=== PATIENT | female | born 1985 | race Asian ===

== ENCOUNTER → 2021-08-19 | Outpatient (CLI) | payer OTHER ==
[2021-08-19 17:27] LABS: BILIRUBIN,URINE NEGATIVE (NEGATIVE); GLUCOSE, URINE (UA) NEGATIVE (NEGATIVE); KETONES,URINE (UA) NEGATIVE (NEGATIVE); LEUKOCYTE ESTERASE, URINE SMALL (NEGATIVE); NITRITE,URINE NEGATIVE (NEGATIVE); OCCULT BLOOD,URINE LARGE (NEGATIVE); PH,URINE 5.5 PH (5.0-7.5); PROTEIN,URINE NEGATIVE (NEGATIVE); UROBILINOGEN,URINE 0.2 (NORMAL) E.U./dL (NORMAL)
[2021-08-19 17:28] LABS: CLARITY,URINE CLOUDY (CLEAR)
[2021-08-19 17:36] LABS: AMORPHOUS SEDIMENT,UR Marked /LPF; BACTERIA,URINE Few /HPF (None Seen); SQUAMOUS EPITHELIAL CELL,UR MANY Squamous (<= Few); WBC,URINE 0-3 /HPF (0-5)
== END ==
LOC: LAB 08:00
PROVIDERS: ATTEND Obstetrics & Gynecology
DX: Z32.01 Encounter for pregnancy test, result positive (principal)
CPT/HCPCS: 81001; 87086

== ENCOUNTER 2021-08-27 16:45 | Outpatient (CLI) | payer OTHER ==
[2021-08-27 19:53] LABS: BASOPHILS % (AUTO) 0.3 %; EOSINOPHILS # (AUTO) 0.2 10^3/uL (0.0-0.7); HCT - HEMATOCRIT 37.4 % (37.0-47.0); HGB - HEMOGLOBIN 12.7 g/dL (12.0-16.0); LYMPHOCYTES # (AUTO) 2.4 10^3/uL (1.5-3.5); LYMPHOCYTES % (AUTO) 30.1 %; MEAN CORPUSCULAR HEMOGLOBIN 32.2 pg (27.0-31.0); MEAN CORPUSCULAR VOLUME 94.7 fL (81.0-99.0); MEAN PLATELET VOLUME 10.7 fL (7.9-10.8); MONOCYTES # (AUTO) 0.5 10^3/uL (0.0-1.0); MONOCYTES % (AUTO) 6.6 %; NEUTROPHILS # (AUTO) 4.8 10^3/uL (1.5-6.6); NEUTROPHILS % (AUTO) 60.7 %; PLT - PLATELET COUNT 231 10^3/uL (130-450); RED BLOOD COUNT 3.95 10^6/uL (4.20-5.40); RED CELL DISTRIBUTION WIDTH 11.5 % (12.0-15.0); WHITE BLOOD COUNT 7.9 x10^3/uL (4.8-10.8)
== END 2021-08-27 16:46 | disposition home or self-care (01) ==
LOC: LAB.S 16:45
PROVIDERS: ATTEND Obstetrics & Gynecology
DX: Z36.89 Encounter for other specified antenatal screening (principal)
CPT/HCPCS: 36415; 85025; 86592; 86762; 86787; 86803; 86850; 86900; 86901; 87340; 87389

== ENCOUNTER 2021-08-29 17:50 | Outpatient (CLI) | payer OTHER ==
--- NOTE | 2021-08-29 18:51 | Ultrasound Report ---
PROCEDURE: OB First Trimester INDICATIONS: +PREG TEST OUTSIDE/PRIOR DATING DATA: Last menstrual period (LMP): 06/24/2021. LMP-based estimated date of delivery (ZIGGY): 03/31/2022. First dating scan (date and location): 08/29/2021. Estimated date of delivery (ZIGGY) from first dating scan: 04/04/2022. The below data below was generated using the study generated ZIGGY of 04/04/2022 TECHNIQUE: Real-time scanning was performed of the fetus and maternal pelvic organs, with image documentation. COMPARISON: None FINDINGS: Embryo: Single intrauterine gestational sac is seen with fetus and yolk sac seen. heart rate i s 171 bpm. [place]-rump length measures 2.2 cm. Estimated gestational age based on current study is 8 w eeks, 6 days. No prior gestational hemorrhage is seen. Measurement variability in dating: +/- 4 weeks by LMP, +/- 7 days by mean sac diameter (use before 6 weeks gestation if crown-rump length not able to be measured), +/- 5 days by crown-rump length (6-12 weeks gestation). Maternal organs: Left ovary is within normal limits. 2.1 x 2.1 x 1.9 cm corpus luteal cyst is seen in right ovary. IMPRESSION: 1. Single live intrauterine with fetus and yolk sac seen. heart rate is 171 bpm. Mary mated gestational age is 8 weeks, 6 days. 2. Corpus luteal cyst in right ovary as above. Reviewed by: Joseph Diane MD on 08/29/2021 6:49 PM PDT Approved by: Jospeh Diane MD on 08/29/2021 6:49 PM PDT Station ID: [id number]
== END 2021-08-29 17:51 | disposition home or self-care (01) ==
LOC: DI 17:50
PROVIDERS: ATTEND Obstetrics & Gynecology
DX: Z32.01 Encounter for pregnancy test, result positive (principal)

== ENCOUNTER 2021-09-03 17:38 | Outpatient (CLI) | payer OTHER ==
[2021-09-03 20:39] LABS: CHLAMYDIA TRACHOMATIS DNA NEGATIVE (NEGATIVE); NEISSERIA GONORRHOEAE DNA NEGATIVE (NEGATIVE); TRICHOMONAS VAGINALIS DNA NEGATIVE (NEGATIVE)
== END 2021-09-03 23:59 | disposition home or self-care (01) ==
LOC: LAB.WC 17:38
PROVIDERS: ATTEND Nurse Practitioner Obstetrics & Gynecology
DX: Z11.3 Encounter for screening for infections with a predominantly sexual mode of transmission (principal)
CPT/HCPCS: 87491; 87591; 87661

== ENCOUNTER 2021-09-28 09:15 | Outpatient (CLI) | payer SELFPAY | END 2021-09-28 09:16 | disposition home or self-care (01) | LOC: LAB 09:15 | PROVIDERS: ATTEND Nurse Practitioner Obstetrics & Gynecology | DX: Z34.90 Encounter for supervision of normal pregnancy, unspecified, unspecified trimester (principal) | CPT/HCPCS: 36415 ==

== ENCOUNTER 2021-10-08 11:07 | Outpatient (CLI) | payer OTHER | END 2021-10-08 11:08 | disposition home or self-care (01) | LOC: LAB 11:07 | PROVIDERS: ATTEND Obstetrics & Gynecology | DX: Z34.90 Encounter for supervision of normal pregnancy, unspecified, unspecified trimester (principal) | CPT/HCPCS: 36415; 81599; 82105; 82306 ==

== ENCOUNTER 2021-11-14 08:44 | Outpatient (CLI) | payer OTHER ==
--- NOTE | 2021-11-14 10:39 | Ultrasound Report ---
PROCEDURE: OB Detailed Eval INDICATIONS: SUPERVISION OF OUTSIDE/PRIOR DATING DATA: Last menstrual period (LMP): 06/24/2021. LMP-based estimated date of delivery (ZIGGY): 03/31/2022. First dating scan (date and location): 08/29/2020. Estimated date of delivery (ZIGGY) from first dating scan: 04/04/2022. The below data below was generated using the ultrasound dating ZIGGY of 04/04/2022 TECHNIQUE: Real-time scanning was performed of the fetus, with image documentation and biometric measurements. Endovaginal scanning: Not performed COMPARISON: Limited comparison with prior ultrasound dated 08/29/2022 FINDINGS: Right corpus luteal cyst measuring 1.5 cm in greatest diameter. No suspicious adnexal mass. General: A single living intrauterine gestation is present. Presentation: Transverse maternal right Placenta: Placental position is anterior, without previa. Amniotic fluid index: 11.1 cm heart rate: 144 beats per minute. Maternal cervical canal: 4.0 cm long; normal length is 2.5 cm or more. biometrics: Biparietal diameter: 4.7 cm corresponding to 20 weeks 1 day Head circumference: 17.1 cm corresponding to 19 weeks 5 days Abdominal circumference: 15.2 cm corresponding to 20 weeks 3 days Femur length: 2.9 cm corresponding to 19 weeks 0 days Estimated gestational age from initial scan: not applicable. Composite gestational age from present scan: 19 weeks 5 days Estimated weight and percentile: 314 g, 43% Measurement variability in biometric dating: +/- 10 days from 12-20 weeks gestation, +/- 2 weeks from 20-30 weeks gestation, +/- 3 weeks at 30 weeks gestation or later. Anatomic survey: Neuro: Ventricles are normal at less than 10 mm. Cisterna magna is normal at 3-11 mm. Cerebellum i s normal in size and morphology. Nuchal skin fold: Normal at less than 6 mm between 14 and 20 weeks gestational age. Face: Nose and lips, facial profile are normal. Spine: No evidence for spina bifida. Heart: 4-chambered heart is present. Right ventricular outflow tract is not well seen. Diaphragm: Diaphragm is intact. Stomach: Left-sided stomach is present. Kidneys: No hydronephrosis. Normal is less than 5 mm in 2nd trimester, less than 7 mm in 3rd trimester. Cord: 3 vessel cord has orthotopic insertion. Bladder: Normal in size. Extremities: All 4 extremities are visualized. IMPRESSION: Single living intrauterine with heart rate of 144 bpm. Gestational age corresponding to 19 weeks 5 days with weight at 314 g corresponding to the 43rd percentile. Right ventricular outflow tract was not well appreciated on today's exam. Consider repeat for further evaluation, otherwise no anatomic abnormality identified. Reviewed by: Macho Smith DO on 11/14/2021 9:38 AM [facility] Approved by: Macho Smith DO on 11/14/2021 9:38 AM [facility] Station ID: [id number]
== END 2021-11-14 08:45 | disposition home or self-care (01) ==
LOC: DI 08:44
PROVIDERS: ATTEND Obstetrics & Gynecology
DX: Z34.00 Encounter for supervision of normal first pregnancy, unspecified trimester (principal); Z36.89 Encounter for other specified antenatal screening

== ENCOUNTER 2021-11-26 17:03 | Outpatient (CLI) | payer OTHER ==
--- NOTE | 2021-11-27 09:57 | Ultrasound Report ---
PROCEDURE: OB F/U or Repeat INDICATIONS: SUPERVISION NORMAL completion of anatomy survey. OUTSIDE/PRIOR DATING DATA: Last menstrual period (LMP): 06/24/2021. LMP-based estimated date of delivery (ZIGGY): 03/31/2022. First dating scan (date and location): 08/29/2021. Estimated date of delivery (ZIGGY) from first dating scan: 04/04/2022. The below data below was generated using the first trimester ultrasound ZIGGY of 04/04/2022 TECHNIQUE: Real-time scanning was performed of the fetus, with image documentation and biometric measurements. Endovaginal scanning: Not performed COMPARISON: 11/14/2021 FINDINGS: General: A single living intrauterine gestation is present. Presentation: Breech Placenta: Placental position is anterior, without previa. Amniotic fluid index: 13.5 cm, largest pocket is 4.5 cm heart rate: 145 beats per minute. Maternal cervical canal: Closed and 5.1 cm cm long; normal length is 2.5 cm or more. Other: cardiac outflow tracts were well seen and appear normal. IMPRESSION: 1. Completion of the anatomic survey by visualization of normal cardiac outflow tracts. Reviewed by: Ceci Mccall MD on 11/27/2021 9:56 AM PST Approved by: Ceci Mccall MD on 11/27/2021 9:56 AM PST Station ID: [id number]
== END 2021-11-26 17:04 | disposition home or self-care (01) ==
LOC: DI 17:03
PROVIDERS: ATTEND Obstetrics & Gynecology
DX: Z34.00 Encounter for supervision of normal first pregnancy, unspecified trimester (principal)

== ENCOUNTER 2021-12-28 07:08 | Outpatient (CLI) | payer OTHER ==
[2021-12-28 14:22] LABS: HCT - HEMATOCRIT 30.9 % (37.0-47.0); HGB - HEMOGLOBIN 10.4 g/dL (12.0-16.0); MEAN CORPUSCULAR HEMOGLOBIN 33.4 pg (27.0-31.0); MEAN CORPUSCULAR HGB CONC 33.7 g/dL (32.0-36.0); MEAN CORPUSCULAR VOLUME 99.4 fL (81.0-99.0); MEAN PLATELET VOLUME 11.4 fL (7.9-10.8); RED BLOOD COUNT 3.11 10^6/uL (4.20-5.40); RED CELL DISTRIBUTION WIDTH 13.4 % (12.0-15.0)
== END 2021-12-28 07:09 | disposition home or self-care (01) ==
LOC: LAB.S 07:08
PROVIDERS: ATTEND Obstetrics & Gynecology
DX: Z34.90 Encounter for supervision of normal pregnancy, unspecified, unspecified trimester (principal)
CPT/HCPCS: 36415; 82728; 82950; 85027

== ENCOUNTER 2022-01-06 08:01 | Outpatient (CLI) | payer OTHER ==
[2022-01-06 08:34] LABS: GTT GLUCOSE,FASTING 90 mg/dL (70-100)
== END 2022-01-06 08:02 | disposition home or self-care (01) ==
LOC: LAB 08:01
PROVIDERS: ATTEND Obstetrics & Gynecology
DX: O99.810 Abnormal glucose complicating pregnancy (principal)
CPT/HCPCS: 36415; 82951; 82952

== ENCOUNTER 2022-02-22 10:26 | Outpatient (CLI) | payer OTHER ==
[2022-02-22 12:02] VITALS: BP 119/71
--- NOTE | 2022-02-24 00:16 | PROCEDURE REPORT ---
- HPI Diagnosis/Indication for NST: Gestational Diabetes Current EDU 03/31/22 Gestation 34 Weeks and 5 Days 1 Para 0 Vital Signs Temperature 98.1 F 02/22/22 10:56 Heart Rate 67 02/22/22 10:56 Respiratory Rate 20 02/22/22 10:56 Blood Pressure 119/71 02/22/22 10:56 Temperature 98.1 F 02/22/22 10:56 Heart Rate 67 02/22/22 10:56 Respiratory Rate 20 02/22/22 10:56 Blood Pressure 119/71 02/22/22 10:56 O2 Saturation - NST Procedure NST Procedure Start Date 02/22/22 Start Time 11:08 Stop Time 11:33 Vibroacoustic Stimulation Used No Patient States Movement Yes EFM 145 mod yoel 15x15 accels no decels TOCO: intermittent and mild - Results and Plan Findings/Impression: Patient is a 37 yo at 34+5 wga here for NST for A2DM -Cat I tracing -Cont with twice weekly NST and weekly TASH DOS: 02/22/22 NST read 02/22/22 DX: IUP at 34+5 wga Gestational diabetes
== END 2022-02-22 11:45 | disposition home or self-care (01) ==
LOC: WFO 10:26 → FBP 10:28 → WFO 11:45
PROVIDERS: ATTEND Obstetrics & Gynecology
DX: O24.419 Gestational diabetes mellitus in pregnancy, unspecified control (principal); Z3A.34 34 weeks gestation of pregnancy
CPT/HCPCS: 59025

== ENCOUNTER 2022-02-24 09:57 | Outpatient (CLI) | payer OTHER ==
--- NOTE | 2022-02-24 12:09 | Ultrasound Report ---
PROCEDURE: OB Limited INDICATIONS: GESTATIONAL DIABETES OUTSIDE/PRIOR DATING DATA: Last menstrual period (LMP): 06/24/2021. LMP-based estimated date of delivery (ZIGGY): 03/31/2022. First dating scan (date and location): 08/29/2022. Estimated date of delivery (ZIGGY) from first dating scan: 04/04/2022. The below data below was generated using the first trimester ultrasound ZIGGY of 04/04/2022 TECHNIQUE: Real-time scanning was performed of the fetus, with image documentation. Endovaginal scanning: Not performed COMPARISON: Most recent prior study dated 02/02/2022 FINDINGS: A single living intrauterine gestation is present. Presentation: Vertex Placenta: Placental position is anterior, without previa. Amniotic fluid index: 12.4 cm, largest pocket is 4.5 cm. heart rate: 130 beats per minutes. Maternal cervical canal: Not seen Estimated gestational age from initial scan: 34 weeks 3 days. IMPRESSION: 1. Single living intrauterine . 2. Amniotic fluid index 12.4 cm and the deepest pocket is 4.5 cm. Reviewed by: Ceci Mccall MD on 02/24/2022 12:07 PM PDT Approved by: Ceci Mccall MD on 02/24/2022 12:07 PM PDT Station ID: [id number]
== END 2022-02-24 09:58 | disposition home or self-care (01) ==
LOC: DI 09:57
PROVIDERS: ATTEND Obstetrics & Gynecology
DX: O24.419 Gestational diabetes mellitus in pregnancy, unspecified control (principal); Z3A.34 34 weeks gestation of pregnancy

== ENCOUNTER 2022-03-03 17:06 | Outpatient (CLI) | payer OTHER ==
[2022-03-03 18:03] VITALS: BP 125/66
--- NOTE | 2022-03-04 09:17 | Ultrasound Report ---
PROCEDURE: OB F/U or Repeat INDICATIONS: GESTATIONAL DIABETES OUTSIDE/PRIOR DATING DATA: Last menstrual period (LMP): 06/24/2021. LMP-based estimated date of delivery (ZIGGY): 03/31/2022. First dating scan (date and location): 08/29/2022. Estimated date of delivery (ZIGGY) from first dating scan: 04/04/2022. The below data below was generated using the study generated ZIGGY of 04/04/2022 TECHNIQUE: Real-time scanning was performed of the fetus, with image documentation and biometric measurements. Endovaginal scanning: Not indicated COMPARISON: 02/02/2022, 02/24/2022. FINDINGS: General: A single living intrauterine gestation is present. Presentation: Vertex Placenta: Placental position is anterior, without previa. Amniotic fluid index: 18.8 cm, normal for gestational age. heart rate: 135 beats per minute. Maternal cervical canal: Not well seen. biometrics: Biparietal diameter: 8.85 cm, 35 weeks, 5 days. Head circumference: 32.6 cm, 37 weeks, 0 day. Abdominal circumference: 30.9 cm, 34 weeks, 5 days. Femur length: 6.3 cm, 32 weeks, 5 days. Estimated gestational age from initial scan: 35 weeks, 3 days. Composite gestational age from present scan: 35 weeks, 1 day. Estimated weight and percentile: 2460 g, 25.2%. Measurement variability in biometric dating: +/- 10 days from 12-20 weeks gestation, +/- 2 weeks from 20-30 weeks gestation, +/- 3 weeks at 30 weeks gestation or more. Other: chest, stomach, bilateral kidneys and urinary bladder are visualized and are within norm al limits. Incidentally noted is prominent venous torrez within placenta. IMPRESSION: 1. Single live intrauterine gestation with fetus in vertex presentation. heart rate is 135 bpm. Normal amount of amniotic fluid at 18.8 cm. Normal growth. Estimated weight is at 25th p ercentile. Reviewed by: Joseph Diane MD on 03/04/2022 9:15 AM PDT Approved by: Joseph Diane MD on 03/04/2022 9:15 AM PDT Station ID: [id number]
--- NOTE | 2022-03-05 17:27 | PROCEDURE REPORT ---
- HPI Diagnosis/Indication for NST: Gestational Diabetes Current EDU 03/31/22 Gestation 36 Weeks and 0 Days 1 Para 0 Vital Signs Temperature 98.2 F 03/03/22 17:51 Heart Rate 69 03/03/22 17:51 Respiratory Rate 16 03/03/22 17:51 Blood Pressure 125/66 03/03/22 17:51 Temperature 98.2 F 03/03/22 17:51 Heart Rate 69 03/03/22 17:51 Respiratory Rate 16 03/03/22 17:51 Blood Pressure 125/66 03/03/22 17:51 O2 Saturation - NST Procedure NST Procedure Start Date 03/03/22 Start Time 17:50 Stop Time 18:17 Vibroacoustic Stimulation Used No Patient States Movement Yes EFM 140 mod yoel 15x15 accels no decels TOCO: intermittent - Results and Plan Plan: - Results and Plan Findings/Impression: Patient is a 37 yo at 36+0 wga here for NST for A2DM -Cat I tracing -Cont with twice weekly NST and weekly TASH DOS: 03/03/22 NST read 03/03/22 DX: IUP at 36+0 wga Gestational diabetes
== END 2022-03-03 18:25 | disposition home or self-care (01) ==
LOC: DI 17:06 → FBP 17:48 → DI 18:25
PROVIDERS: ATTEND Obstetrics & Gynecology
DX: O24.419 Gestational diabetes mellitus in pregnancy, unspecified control (principal); Z3A.36 36 weeks gestation of pregnancy
CPT/HCPCS: 59025

== ENCOUNTER 2022-03-04 08:00 | Outpatient (CLI) | payer OTHER | END 2022-03-04 08:01 | disposition home or self-care (01) | LOC: LAB 08:00 | PROVIDERS: ATTEND Obstetrics & Gynecology | DX: Z36.85 Encounter for antenatal screening for Streptococcus B (principal) | CPT/HCPCS: 87081; 87797 ==